=== PATIENT | male | born 1930 | race Caucasian/White ===

== ENCOUNTER 2017-07-04 05:55 | Day surgery (SDC) | payer MEDICARE ==
[2017-06-29 14:06] VITALS: BP 133/59
[2017-06-29 14:34] LABS: BASOPHILS % (AUTO) 0.7 % (0.0-5.0); EOSINOPHILS % (AUTO) 3.5 % (0.0-8.0); LYMPHOCYTES % (AUTO) 18.9 % (21.0-51.0); MEAN CORPUSCULAR HEMOGLOBIN 33.7 pg (27.0-33.0); MEAN CORPUSCULAR HGB CONC 34.5 g/dL (32.0-36.0); MEAN CORPUSCULAR VOLUME 97.7 fL (79-99); NEUTROPHILS % (AUTO) 62.9 % (40.0-77.0); NUCLEATED RED BLOOD CELLS 0.1 % (0.0-0.19); PLATELET COUNT (AUTO) 257 K/uL (130-400); RED BLOOD CELL COUNT(AUTO) 3.38 MIL/uL (4.50-6.20); RED CELL DISTRIBUTION WIDTH 14.1 % (11.0-15.5); WHITE BLOOD COUNT (AUTO) 5.8 K/uL (4.8-10.8)
[2017-06-29 14:40] LABS: CREATININE 1.2 mg/dL (0.5-1.5); POTASSIUM 4.7 mmol/L (3.5-5.1)
[~2017-07-04] VITALS: Ht 175.3 cm; Wt 75.3 kg
[2017-07-04] VITALS (19 sets, daily range): BP systolic 121–156; BP diastolic 52–71
[~2017-07-04 05:55] MED LIST: CARV3.1262 PO; CETI-101 PO; LEVO25TA9 PO; MELA5CAP PO; MULT1TAB70 PO; TERA10CA4 PO; TRAM50TA4 PO
[2017-07-04] MEDS ORDERED: LACTATED RINGERS 1000ML 1,000 ML IV ONE (06:24)
[2017-07-04] MEDS: VANCOMYCIN 1GM+NS 250ML 250 ML IV SCH ×2 (06:45→07:24)
[2017-07-04] MEDS ORDERED: CLINDAMYCIN 900 MG/D5% WATER 50 ML IV ONE (06:49)
[2017-07-04] MEDS ORDERED: ONDANSETRON HCL 4 MG/2 ML VIAL ONE (07:04)
[2017-07-04] MEDS ORDERED: PROPOFOL 10 MG/ML 20ML VIAL IV ONE (07:04)
[2017-07-04] MEDS ORDERED: NEOSTIGMINE METHYLSULFATE 1MG/ML IV ONE (07:04)
[2017-07-04] MEDS ORDERED: LIDOCAINE PF 2% 5ML ABBOJECT ONE (07:04)
[2017-07-04] MEDS ORDERED: SUCCINYLCHOLINE 200MG/10ML SYR ONE (07:04)
[2017-07-04] MEDS ORDERED: GLYCOPYRROLATE 0.2 MG/ML 5 ML VIAL ONE (07:04)
[2017-07-04] MEDS ORDERED: DEXAMETHASONE SOD PHOSPHATE 10MG/ML 1ML VIAL ONE (07:04)
[2017-07-04] MEDS ORDERED: MIDAZOLAM HCL 1 MG/ML 2ML VIAL ONE (07:04)
[2017-07-04] MEDS ORDERED: FENTANYL CITRATE PF 50 MCG/1 ML 2ML VIAL ONE ×2 (07:05→07:49)
[2017-07-04] MEDS ORDERED: BUPIVACAINE/EPI/PF 0.25% 30ML VIAL IJ ONE (07:15)
[2017-07-04] MEDS ORDERED: LIDOCAINE HCL 1% 20 ML VIAL ONE (07:15)
== END 2017-07-04 12:55 | disposition home or self-care (01) ==
LOC: DAH 05:55
PROVIDERS: ATTEND Neurological Surgery
DX: M80.88XA Other osteoporosis with current pathological fracture, vertebra(e), initial encounter for fracture (principal); I10 Essential (primary) hypertension; G89.4 Chronic pain syndrome; Z98.890 Other specified postprocedural states; Z88.0 Allergy status to penicillin; Z91.018 Allergy to other foods
CPT/HCPCS: 22510; 36415; 76000; 80048; 85025; 93005; A4215; C1763; J0330; J1100; J2001; J2250; J2405; J2704; J2710; J3010 ×2; J3370; J3490 ×3; J7120

== ENCOUNTER → 2017-11-01 | Outpatient (CLI) | payer MEDICARE | END | disposition home or self-care (01) | LOC: RAH 10:25 | PROVIDERS: ATTEND Physical Medicine & Rehabilitation | DX: M17.12 Unilateral primary osteoarthritis, left knee (principal) | CPT/HCPCS: 73562 ==

== ENCOUNTER → 2017-12-11 | Outpatient (CLI) | payer MEDICARE | END | disposition home or self-care (01) | LOC: RAH 15:04 | PROVIDERS: ATTEND Physical Medicine & Rehabilitation | DX: S83.282A Other tear of lateral meniscus, current injury, left knee, initial encounter (principal); S83.242A Other tear of medial meniscus, current injury, left knee, initial encounter; M17.12 Unilateral primary osteoarthritis, left knee; M25.462 Effusion, left knee; M21.962 Unspecified acquired deformity of left lower leg; X58.XXXA Exposure to other specified factors, initial encounter; Y93.89 Activity, other specified; Y92.89 Other specified places as the place of occurrence of the external cause; Y99.8 Other external cause status | CPT/HCPCS: 73721 ==